=== PATIENT | male | born 1950 | race Caucasian/White ===

== ENCOUNTER → 2016-05-18 | Outpatient (CLI) | payer MEDICARE, OTHER | END | disposition home or self-care (01) | LOC: Rad HDHVI 09:40 | PROVIDERS: ATTEND Internal Medicine Cardiovascular Disease | DX: R91.8 Other nonspecific abnormal finding of lung field (principal); I70.0 Atherosclerosis of aorta | CPT/HCPCS: 71020 ==

== ENCOUNTER → 2016-06-13 | Outpatient (CLI) | payer MEDICARE, OTHER ==
[~2016-06-13] VITALS: Ht 180.3 cm; Wt 76.2 kg
[~2016-06-13] MED LIST: ALBUTEROL SULF 2.5 MG/0.5ML(0.5%) NEB SOLN NEB ONE; ALBUTEROL SULF 2.5 MG/0.5ML(0.5%) NEB SOLN ONE; CYANOCOBALAMIN (B-12) 1000 MCG/1 ML VIAL IM ONE; CYANOCOBALAMIN (B-12) 1000 MCG/1 ML VIAL ONE; methylPREDNISolone SOD SUCC 125 MG/2 ML VL IV ONE; methylPREDNISolone SOD SUCC 125 MG/2 ML VL ONE
[2016-06-13 10:30] VITALS: BP 137/97
[2016-06-13 14:10] VITALS: BP 149/97
[2016-06-13 17:19] LABS: BUN/Creatinine Ratio 13.3; Calcium 9.5 mg/dL (8.5-10.1); Potassium 4.5 mmol/L (3.5-5.1); Uric Acid 5.5 mg/dL (3.5-7.2)
== END | disposition home or self-care (01) ==
LOC: CHF HDHVI 10:15
PROVIDERS: ATTEND Internal Medicine Cardiovascular Disease
DX: I10 Essential (primary) hypertension (principal); M10.9 Gout, unspecified; E55.9 Vitamin D deficiency, unspecified; E11.9 Type 2 diabetes mellitus without complications
CPT/HCPCS: 36415; 80048; 82306; 83036; 84550; 94640; 96372; 96374; G0463

== ENCOUNTER → 2016-06-20 | Outpatient (CLI) | payer MEDICARE, OTHER ==
[~2016-06-20] MED LIST changes: -ALBUTEROL SULF 2.5 MG/0.5ML(0.5%) NEB SOLN NEB ONE; -ALBUTEROL SULF 2.5 MG/0.5ML(0.5%) NEB SOLN ONE; -methylPREDNISolone SOD SUCC 125 MG/2 ML VL IV ONE; -methylPREDNISolone SOD SUCC 125 MG/2 ML VL ONE
[2016-06-20 09:45] VITALS: BP 156/104
[2016-06-20 10:20] VITALS: BP 154/100
== END | disposition home or self-care (01) ==
LOC: CHF HDHVI 09:56
PROVIDERS: ATTEND Internal Medicine Cardiovascular Disease
DX: I50.9 Heart failure, unspecified (principal); J44.9 Chronic obstructive pulmonary disease, unspecified; D64.9 Anemia, unspecified
CPT/HCPCS: 96372; G0463; J3420

== ENCOUNTER → 2016-10-14 | Outpatient (CLI) | payer MEDICARE, OTHER ==
[2016-10-14 08:50] VITALS: BP 117/79
[2016-10-14 09:45] VITALS: BP 116/82
[2016-10-14 12:55] LABS: BUN/Creatinine Ratio 16.5; Calcium 9.3 mg/dL (8.5-10.1); Potassium 4.5 mmol/L (3.5-5.1)
== END | disposition home or self-care (01) ==
LOC: CHF HDHVI 08:57
PROVIDERS: ATTEND Internal Medicine Cardiovascular Disease
DX: I25.10 Atherosclerotic heart disease of native coronary artery without angina pectoris (principal); I10 Essential (primary) hypertension; E11.9 Type 2 diabetes mellitus without complications; E83.42 Hypomagnesemia
CPT/HCPCS: 36415; 80048; 83036; 83735; G0463

== ENCOUNTER → 2016-11-08 | Outpatient (CLI) | payer MEDICARE | END | disposition home or self-care (01) | LOC: Rad HDHVI 09:51 | PROVIDERS: ATTEND Internal Medicine Cardiovascular Disease | DX: I10 Essential (primary) hypertension (principal); J44.9 Chronic obstructive pulmonary disease, unspecified | CPT/HCPCS: 93306 ==

== ENCOUNTER → 2016-11-14 | Outpatient (CLI) | payer MEDICARE ==
[~2016-11-14] VITALS: Ht 180.3 cm; Wt 76.7 kg
[~2016-11-14] MED LIST changes: -CYANOCOBALAMIN (B-12) 1000 MCG/1 ML VIAL IM ONE; -CYANOCOBALAMIN (B-12) 1000 MCG/1 ML VIAL ONE; +D5W 5% IV SCH; +DIPYRIDAMOLE (5MG/ML) 10 ML VIAL IV ONE; +DIPYRIDAMOLE IV SCH
== END | disposition home or self-care (01) ==
LOC: Rad HDHVI 09:14
PROVIDERS: ATTEND Internal Medicine Cardiovascular Disease
DX: I10 Essential (primary) hypertension (principal); I25.10 Atherosclerotic heart disease of native coronary artery without angina pectoris; J44.9 Chronic obstructive pulmonary disease, unspecified
CPT/HCPCS: 78452; 93005; 96374; 96375; A9500; J1245

== ENCOUNTER → 2017-07-21 | Outpatient (CLI) | payer MEDICARE ==
[~2017-07-21] MED LIST changes: +ALPR0.254 PO; +ASPI81CH49 PO; -D5W 5% IV SCH; -DIPYRIDAMOLE (5MG/ML) 10 ML VIAL IV ONE; -DIPYRIDAMOLE IV SCH; +FURO20TA PO; +LISI30TA36 PO; +POTA10TA34 PO
[2017-07-21 12:00] LABS: BUN/Creatinine Ratio 15.3; Calcium 8.8 mg/dL (8.5-10.1); Potassium 3.9 mmol/L (3.5-5.1)
== END | disposition home or self-care (01) ==
LOC: LAB 09:11
PROVIDERS: ATTEND Internal Medicine
DX: I11.0 Hypertensive heart disease with heart failure (principal); I50.32 Chronic diastolic (congestive) heart failure; E78.5 Hyperlipidemia, unspecified; E11.9 Type 2 diabetes mellitus without complications; Z79.899 Other long term (current) drug therapy
CPT/HCPCS: 36415; 80048

== ENCOUNTER → 2017-08-16 | Outpatient (CLI) | payer MEDICARE | END | disposition home or self-care (01) | LOC: Rad HDHVI 15:14 | PROVIDERS: ATTEND Internal Medicine Cardiovascular Disease | DX: I25.10 Atherosclerotic heart disease of native coronary artery without angina pectoris (principal); I11.0 Hypertensive heart disease with heart failure; I50.23 Acute on chronic systolic (congestive) heart failure; E78.5 Hyperlipidemia, unspecified; F41.9 Anxiety disorder, unspecified; J44.9 Chronic obstructive pulmonary disease, unspecified; K21.9 Gastro-esophageal reflux disease without esophagitis; Z79.899 Other long term (current) drug therapy | CPT/HCPCS: 71046 ==

== ENCOUNTER → 2017-08-18 | Outpatient (CLI) | payer MEDICARE | END | disposition home or self-care (01) | LOC: Rad HDHVI 13:38 | PROVIDERS: ATTEND Internal Medicine Cardiovascular Disease | DX: J44.9 Chronic obstructive pulmonary disease, unspecified (principal); F41.9 Anxiety disorder, unspecified; I11.0 Hypertensive heart disease with heart failure; I50.9 Heart failure, unspecified; E11.9 Type 2 diabetes mellitus without complications; E78.5 Hyperlipidemia, unspecified | CPT/HCPCS: 93306 ==

== ENCOUNTER 2018-04-30 15:25 | Inpatient (IN) | payer MEDICARE | END 2018-05-18 13:30 | disposition home or self-care (01) | LOC: TELE-WESTW 05-07 11:46 → ER 15:25 → TELE 17:12 → ICU WEST 22:22 | PROC: 5A1955Z Respiratory Ventilation, Greater than 96 Consecutive Hours (ICD-10-PCS; principal; ~2018-04-30) | PROC: 0BH17EZ Insertion of Endotracheal Airway into Trachea, Via Natural or Artificial Opening (ICD-10-PCS; ~2018-04-30) | PROC: B2111ZZ Fluoroscopy of Multiple Coronary Arteries using Low Osmolar Contrast (ICD-10-PCS; ~2018-04-30) | PROC: B2151ZZ Fluoroscopy of Left Heart using Low Osmolar Contrast (ICD-10-PCS; ~2018-04-30) | DX: J96.21 Acute and chronic respiratory failure with hypoxia (principal); J18.9 Pneumonia, unspecified organism; G93.41 Metabolic encephalopathy; J44.1 Chronic obstructive pulmonary disease with (acute) exacerbation; I47.1 Supraventricular tachycardia; F41.9 Anxiety disorder, unspecified; E78.5 Hyperlipidemia, unspecified; I25.10 Atherosclerotic heart disease of native coronary artery without angina pectoris; Z99.81 Dependence on supplemental oxygen; I11.0 Hypertensive heart disease with heart failure; I50.9 Heart failure, unspecified ==

== ENCOUNTER → 2018-05-28 | Outpatient (CLI) | payer MEDICARE ==
[~2018-05-28] MED LIST changes: +ALBU1AER4 IN; -ALPR0.254 PO; +BUSP15TA60 PO; +LISI10TA6 PO; -LISI30TA36 PO; +MELO1TAB56 PO; +MONT10TA34 OR; -POTA10TA34 PO; +POTA10TA48 PO; +PRE5T GT
== END | disposition home or self-care (01) ==
LOC: Rad HDHVI 11:27
PROVIDERS: ATTEND Internal Medicine Cardiovascular Disease
DX: I70.0 Atherosclerosis of aorta (principal); M47.894 Other spondylosis, thoracic region; J98.11 Atelectasis; I10 Essential (primary) hypertension; J44.9 Chronic obstructive pulmonary disease, unspecified
CPT/HCPCS: 71046

== ENCOUNTER → 2018-07-18 | Outpatient (CLI) | payer MEDICARE ==
[~2018-07-18] VITALS: Ht 182.9 cm; Wt 81.6 kg
[~2018-07-18] MED LIST changes: +ADENOSINE 69 MG in GIVE UN-DILUTED 0 ML IV ONE; +ADENOSINE 90 MG/30 ML INJ IV ONE
== END | disposition home or self-care (01) ==
LOC: Rad HDHVI 10:00
PROVIDERS: ATTEND Internal Medicine Cardiovascular Disease
DX: I25.10 Atherosclerotic heart disease of native coronary artery without angina pectoris (principal); Z13.89 Encounter for screening for other disorder; I10 Essential (primary) hypertension; G62.9 Polyneuropathy, unspecified; J44.9 Chronic obstructive pulmonary disease, unspecified; J18.9 Pneumonia, unspecified organism; J96.90 Respiratory failure, unspecified, unspecified whether with hypoxia or hypercapnia
CPT/HCPCS: 78452; 93005; 96374; 96375; A9500; J0153

== ENCOUNTER → 2018-07-25 | Outpatient (CLI) | payer MEDICARE ==
[~2018-07-25] MED LIST changes: -ADENOSINE 69 MG in GIVE UN-DILUTED 0 ML IV ONE; -ADENOSINE 90 MG/30 ML INJ IV ONE
== END | disposition home or self-care (01) ==
LOC: Rad HDHVI 11:24
PROVIDERS: ATTEND Internal Medicine Cardiovascular Disease
DX: J43.9 Emphysema, unspecified (principal)
CPT/HCPCS: 71250

== ENCOUNTER 2018-08-28 21:20 | Inpatient (IN) | payer MEDICARE ==
[~2018-08-28] VITALS: Ht 180.3 cm; Wt 85.5 kg
[~2018-08-28 21:20] MED LIST changes: -ASPI81CH49 PO; +FLUC100T34 PO; -FURO20TA PO; +LEVO-28 PO; -LISI10TA6 PO; -MONT10TA34 OR; +MONT10TA34 PO; +MULTTAB61 PO; -POTA10TA48 PO; -PRE5T GT; +PRE5T PO
[2018-08-28] MEDS ORDERED: IPRATROPIUM BROM 0.5 MG/2.5ML INH SOL ONE (21:22)
[2018-08-28] MEDS ORDERED: ALBUTEROL SULF 2.5 MG/0.5ML(0.5%) NEB SOLN ONE (21:22)
[2018-08-28] MEDS ORDERED: methylPREDNISolone SOD SUCC 125 MG/2 ML VL ONE (21:34)
[2018-08-28] MEDS ORDERED: SODIUM CHLORIDE 0.9% 500 ML IV ONE (21:35)
[2018-08-28] MEDS ORDERED: IPRATROPIUM BROM 0.5 MG/2.5ML INH SOL HHN ONE (21:45)
[2018-08-28] MEDS ORDERED: methylPREDNISolone SOD SUCC 125 MG/2 ML VL IV ONE (21:45)
[2018-08-28] MEDS ORDERED: AZITHROMYCIN 500MG/ 250ML 250 ML IV ONE (21:45)
[2018-08-28] MEDS ORDERED: cefTRIAXone 1GM/50ML D5W 50 ML IV ONE (21:45)
[2018-08-28] MEDS ORDERED: ADENOSINE 6 MG/2 ML INJ IV ONE (21:45)
[2018-08-28 22:11] LABS: Basophils # (auto) 0.1 uL; Basophils % (auto) 1.1 % (0.0-2.0); Eosinophils # (auto) 0.2 uL; Eosinophils % (auto) 1.7 % (0.0-7.0); Hematocrit 41.5 % (41.0-53.0); Hemoglobin 13.6 g/dL (13.5-17.5); Lymphocytes # (auto) 3.4 uL; Lymphocytes % (auto) 27.4 % (10.0-50.0); Mean Corpuscular Hemoglobin 32.2 pg (28.0-32.0); Mean Corpuscular Hgb Conc. 32.7 g/dL (32.0-36.0); Mean Corpuscular Volume 98.6 fL (80.0-100.0); Monocytes # (auto) 1.2 uL; Monocytes % (auto) 9.7 % (0.0-12.0); Neutrophils # (auto) 7.5 uL; Neutrophils % (auto) 60.1 % (37.0-80.0); Platelet Count (auto) 146 10^3/uL (140-450); Red Blood Cells 4.21 10^6/uL (4.5-5.90); White Blood Cell 12.4 10^3/uL (4.4-10.8)
[2018-08-28 22:25] LABS: INR < 0.93 (0.9-1.15); Partial Thromboplastin Time 22.8 sec (23.64-32.05)
[2018-08-28 22:27] LABS: Albumin 3.4 g/dL (3.4-5.0); Calcium 8.9 mg/dL (8.5-10.1); Magnesium 2.6 mg/dL (1.6-2.6); Potassium 4.3 mmol/L (3.5-5.1)
[2018-08-28 22:33] LABS: BUN/Creatinine Ratio 12.6; Bilirubin, Total 0.3 mg/dL (0.2-1.0); Total Protein 6.8 g/dL (6.4-8.2)
[2018-08-28] MEDS ORDERED: busPIRone HCL 10 MG TAB PO ONE (23:00)
[2018-08-29] MEDS ORDERED: IOHEXOL 350 MG/ML 100ML IJ ONE (00:53)
[2018-08-29] MEDS ORDERED: LEVALBUTEROL HCL 1.25 MG/3 ML NEB NEB ONE (04:30)
[2018-08-29] MEDS ORDERED: MORPHINE SULF INJ 2 MG/ML SYRINGE 1ML IV PRN (10:45)
[2018-08-29] MEDS ORDERED: NITROGLYCERIN 0.4 MG SL TAB SL PRN (10:45)
[2018-08-29] MEDS ORDERED: MONTELUKAST SODIUM 10 MG TAB PO ONE (11:00)
[2018-08-29] MEDS ORDERED: THEOPHYLLINE 80 MG/15ml ORAL Elixir PO ONE (11:00)
[2018-08-29] MEDS ORDERED: ASPirin 81 mg TAB PO ONE (11:00)
[2018-08-29] MEDS ORDERED: FLUCONAZOLE 100 MG TAB PO ONE (11:00)
[2018-08-29] MEDS ORDERED: AZITHROMYCIN 500MG/ 250ML 250 ML IV ONE (11:00)
[2018-08-29] MEDS ORDERED: methylPREDNISolone SOD SUCC 40 MG/ML VL IV ONE (11:00)
[2018-08-29 11:15] VITALS: BP 142/103
[2018-08-29] MEDS: IPRATROPIUM BROM 0.5 MG/2.5ML INH SOL NEB SCH ×4 (11:15→22:18)
--- NOTE | 2018-08-29 13:50 | NUR ---
MS admit from ER KASSIDY BLANKENSHIP admitted to tele/MS after SBAR received. Patient oriented to JING NARVAEZ, RN primary RN, unit, room, bed, and unit policies regarding patient care and visiting hours. Patient weighed by bedscale and encouraged to call if they need something. All questions and concerns addressed, patient verbalized understanding. Note:
[2018-08-29 13:54] VITALS: BP 146/90
[2018-08-29 14:15] VITALS: BP 146/90
[2018-08-29] MEDS: FEXOFENADINE HCL 60 MG TAB PO SCH ×2 (14:40→21:30)
[2018-08-29] MEDS: busPIRone HCL 10 MG TAB PO SCH ×2 (14:40→21:30)
[2018-08-29] MEDS: methylPREDNISolone SOD SUCC 40 MG/ML VL IV SCH ×2 (14:40→21:29)
[2018-08-29 17:43] VITALS: BP 139/70
--- NOTE | 2018-08-29 18:58 | NUR ---
REPORT GIVEN TO SHAJI PRETTY
--- NOTE | 2018-08-29 19:30 | NUR ---
OPENING NOTE ASSUMED PT CARE FROM DAY SHIFT NURSE JING. PT IS A/OX4 LAYING QUIETLY IN BED WITH NO S/S OF SOB OR DISTRESS. PT STATES THAT HE IS FEELING BETTER REGARDING HIS BREATHING AND SOB. DISCUSSED POC WITH PT. SAFETY MEASURES MAINTAINED WITH SIDE RAILS UP, BED IN LOWEST POSITION AND CALL LIGHT WITHIN REACH. WILL CONTINUE TO MONITOR FOR CHANGES Q1HR AND PRN.
[2018-08-29 22:00] VITALS: BP 143/85
[2018-08-29] MEDS ORDERED: IPRATROPIUM BROM 0.5 MG/2.5ML INH SOL ONE (22:03)
[2018-08-30] MEDS: IPRATROPIUM BROM 0.5 MG/2.5ML INH SOL NEB SCH ×6 (02:16→22:00)
[2018-08-30 04:30] VITALS: BP 120/69
--- NOTE | 2018-08-30 04:53 | NUR ---
IV INSERTION 20 G IN RIGHT HAND PLACED. PT REQUESTED THE CHANGE OF IV DUE TO IRRITATION AND HIM BEING LEFT HANDED. PT TOLERATED WELL AND STERILE TECHNIQUE WAS MAINTAINED.
--- NOTE | 2018-08-30 04:55 | NUR ---
IV REMOVAL IV REMOVAL OF L 20G AC. PT TOLERATED WELL, CATHETER WAS REMOVED FULLY INTACT AND PRESSURE WAS APPLIED TO SIDE FOR 3 MINUTES AND WRAPPED WITH COBAN.
[2018-08-30] MEDS: methylPREDNISolone SOD SUCC 40 MG/ML VL IV SCH ×3 (05:24→22:08)
[2018-08-30] MEDS: busPIRone HCL 10 MG TAB PO SCH ×3 (05:24→22:08)
[2018-08-30] MEDS: FEXOFENADINE HCL 60 MG TAB PO SCH ×3 (05:24→22:08)
--- NOTE | 2018-08-30 07:30 | NUR ---
Opening Shift Note Assumed care of patient, awake and alert. No S/S of distress/SOB or pain. Instructed on POC and to call for assist PRN, will continue to monitor for changes Q1hr and PRN.
[2018-08-30 08:00] VITALS: BP 124/83
[2018-08-30] MEDS: AZITHROMYCIN 500MG/ 250ML 250 ML IV SCH (10:06)
[2018-08-30] MEDS: ASPirin 81 mg TAB PO SCH (10:07)
[2018-08-30] MEDS: THEOPHYLLINE 80 MG/15ml ORAL Elixir PO SCH (10:07)
[2018-08-30] MEDS: FLUCONAZOLE 100 MG TAB PO SCH (10:07)
[2018-08-30] MEDS: MONTELUKAST SODIUM 10 MG TAB PO SCH (10:07)
[2018-08-30 12:00] VITALS: BP 123/86
[2018-08-30 17:00] VITALS: BP 119/77
--- NOTE | 2018-08-30 19:20 | NUR ---
Opening Shift Note Assumed care of patient, awake and alert. No S/S of distress/SOB or pain. Instructed on POC and to call for assist PRN. Bed in lowest locked position, call light within reach, side rails up x2, fall precautions in place. Will continue to monitor for changes Q1hr and PRN.
[2018-08-30 21:30] VITALS: BP 117/80
[2018-08-31] MEDS: IPRATROPIUM BROM 0.5 MG/2.5ML INH SOL NEB SCH ×6 (02:14→22:43)
[2018-08-31 04:30] VITALS: BP 115/55
[2018-08-31] MEDS: FEXOFENADINE HCL 60 MG TAB PO SCH ×3 (06:10→21:37)
[2018-08-31] MEDS: busPIRone HCL 10 MG TAB PO SCH ×3 (06:10→21:37)
[2018-08-31] MEDS: methylPREDNISolone SOD SUCC 40 MG/ML VL IV SCH ×3 (06:11→21:36)
--- NOTE | 2018-08-31 07:20 | NUR ---
Open Shift Note Received report on patient, awake and sitting up in bed. Patient shows no signs of distress at this time. Patient states their breathing is "a little bit better today" but that he is still unable to cough anything up. Discussed POC with patient. Bed in lowest locked position, side rails up x2 and call light within reach. Will continue to monitor.
[2018-08-31 09:00] VITALS: BP 139/95
[2018-08-31] MEDS: AZITHROMYCIN 500MG/ 250ML 250 ML IV SCH (09:52)
[2018-08-31] MEDS: FLUCONAZOLE 100 MG TAB PO SCH (09:53)
[2018-08-31] MEDS: ASPirin 81 mg TAB PO SCH (09:53)
[2018-08-31] MEDS: THEOPHYLLINE 80 MG/15ml ORAL Elixir PO SCH (09:53)
[2018-08-31] MEDS: MONTELUKAST SODIUM 10 MG TAB PO SCH (09:53)
--- NOTE | 2018-08-31 11:11 | NUR ---
IV insertion IV access obtained, via clean sterile technique by inserting 20 gauge catheter in the left forearm. IV secured properly. No trauma to site. Patient tolerated well. IV removed from left hand using clean sterile technique, catheter intact and dressing applied.
[2018-08-31 13:00] VITALS: BP 112/80
--- NOTE | 2018-08-31 14:35 | NUR ---
IV insertion IV access obtained, via clean sterile technique by inserting 22 gauge catheter in the right forearm. IV secured properly. No trauma to site. Patient tolerated well. IV removed from left forearm using clean sterile technique, catheter intact and dressing applied.
[2018-08-31 17:00] VITALS: BP 119/88
--- NOTE | 2018-08-31 19:00 | NUR ---
End of Shift Patient sitting up in bed, showing no signs of distress at this time. Bed in lowest locked position, side rails up x2 and call light within reach. Endorsed care to [facility] nurse Medina.
--- NOTE | 2018-08-31 19:10 | NUR ---
Opening Shift Note Assumed care of patient, awake and alert. No S/S of distress/SOB or pain. Instructed on POC and to call for assist PRN. Bed in lowest locked position, call light within reach, side rails up x2. Will continue to monitor for changes Q1hr and PRN.
[2018-08-31 22:00] VITALS: BP 126/81
[2018-09-01] MEDS: IPRATROPIUM BROM 0.5 MG/2.5ML INH SOL NEB SCH ×6 (04:14→22:02)
[2018-09-01 04:30] VITALS: BP 108/73
[2018-09-01] MEDS: methylPREDNISolone SOD SUCC 40 MG/ML VL IV SCH ×3 (05:36→21:23)
[2018-09-01] MEDS: FEXOFENADINE HCL 60 MG TAB PO SCH ×3 (05:37→21:23)
[2018-09-01] MEDS: busPIRone HCL 10 MG TAB PO SCH ×3 (05:37→21:23)
--- NOTE | 2018-09-01 07:20 | NUR ---
Open Shift Note Patient asleep in bed, shows no signs of distress at this time. Bed in lowest locked position, side rails up x2 and call light within reach. Will continue to monitor.
--- NOTE | 2018-09-01 07:54 | NUR ---
Anxiety Attack Patient had anxiety attack. Patient stated it started after ambulating to restroom. Ensured patient's oxygen was on and flowing. Patient's O2 saturation 96% on 4L NC. Talked patient through breathing exercises. When first entered room patient was sitting on side of bed breathing heavily through mouth. Educated patient importance of breathing through nose to receive O2 from nasal cannula. Patient had received scheduled anxiety medication at 0537 from [facility] nurse. Patient used breathing exercises and calmed down. Discussed POC with patient to ease anxiety about his status. Patient verbalized understanding. Discussed using bedside commode instead of walking to restroom, patient verbalized being ok with use of one. Patient sat back in bed and no longer has labored breathing. Will continue to monitor. Truck Guard to bring bedside commode.
[2018-09-01 08:20] VITALS: BP 126/95
[2018-09-01] MEDS: ALPRAZolam 0.5 MG TAB PO PRN ×2 (08:25→18:49)
--- NOTE | 2018-09-01 08:43 | NUR ---
Paged Dario For PRN Breathing Treatment Paged Dr Bishop to inform him of patient's anxiety attack and to ask for orders for PRN breathing treatments. Awaiting callback.
[2018-09-01] MEDS ORDERED: ALBUTEROL SULF 2.5 MG/0.5ML(0.5%) NEB SOLN ONE (09:53)
[2018-09-01] MEDS: AZITHROMYCIN 500MG/ 250ML 250 ML IV SCH (11:02)
[2018-09-01] MEDS: MONTELUKAST SODIUM 10 MG TAB PO SCH (11:03)
[2018-09-01] MEDS: ASPirin 81 mg TAB PO SCH (11:03)
[2018-09-01] MEDS: THEOPHYLLINE 80 MG/15ml ORAL Elixir PO SCH (11:03)
[2018-09-01] MEDS: FLUCONAZOLE 100 MG TAB PO SCH (11:03)
[2018-09-01] MEDS ORDERED: POTASSIUM CHL 20 Meq TABLET PO ONE (12:30)
[2018-09-01] MEDS ORDERED: FUROSEMIDE 40 MG/4 ML VIAL IV ONE (12:30)
[2018-09-01 13:41] VITALS: BP 126/95
--- NOTE | 2018-09-01 14:02 | NUR ---
NUTRITION ASSESSMENT NOTES Please refer to link notes of nutrition screen form filed under the intervention section of the plan of care for further details. Est. Needs: 1750 kcal to 2150 kcal (20-25 kcal/kgBW), 69 gms to 87 gms pro (0.8-1.0 gms/kgBW). Will continue to monitor pertinent labs and reassess nutrient need prn Thank you. Addendum: 09/01/18 at [address] Amended: Links added.
[2018-09-01 15:12] VITALS: BP 126/95
[2018-09-01] MEDS: ALBUTEROL SULF 2.5 MG/0.5ML(0.5%) NEB SOLN NEB SCH ×3 (15:30→22:02)
[2018-09-01 17:13] VITALS: BP 120/86
--- NOTE | 2018-09-01 19:04 | NUR ---
End of Shift Patient sitting up in bed, states he is worried about his who just got admitted to [facility] for a TIA. Patient's daughter at bedside helping to reassure patient. PRN anxiety medication given. Bed in lowest locked position, side rails up x2 and call light within reach.
[2018-09-01 22:00] VITALS: BP 111/82
--- NOTE | 2018-09-01 22:38 | NUR ---
Opening Shift Note Assumed care of patient, awake and alert. No S/S of distress/SOB or pain. Instructed on POC and to call for assist PRN, will continue to monitor for changes Q1hr and PRN. Side rails up x2. Bed locked in lowest position. Call light within reach. Addendum: 09/01/18 at 8943 by CLARKE RAYMUNDO RN RN done at 0
[2018-09-02] MEDS: ALBUTEROL SULF 2.5 MG/0.5ML(0.5%) NEB SOLN NEB SCH ×6 (02:04→22:56)
[2018-09-02] MEDS: IPRATROPIUM BROM 0.5 MG/2.5ML INH SOL NEB SCH ×6 (02:04→22:56)
[2018-09-02 05:00] VITALS: BP 121/78
[2018-09-02] MEDS: busPIRone HCL 10 MG TAB PO SCH ×3 (05:51→21:19)
[2018-09-02] MEDS: methylPREDNISolone SOD SUCC 40 MG/ML VL IV SCH ×3 (05:51→21:18)
[2018-09-02] MEDS: FEXOFENADINE HCL 60 MG TAB PO SCH ×3 (05:52→21:19)
[2018-09-02 06:32] LABS: Basophils # (auto) 0.1 uL; Basophils % (auto) 0.4 % (0.0-2.0); Eosinophils # (auto) 0 uL; Eosinophils % (auto) 0.1 % (0.0-7.0); Hematocrit 41.1 % (41.0-53.0); Hemoglobin 13.5 g/dL (13.5-17.5); Lymphocytes # (auto) 0.3 uL; Lymphocytes % (auto) 2.1 % (10.0-50.0); Mean Corpuscular Hgb Conc. 32.8 g/dL (32.0-36.0); Mean Corpuscular Volume 97.8 fL (80.0-100.0); Monocytes # (auto) 0.5 uL; Monocytes % (auto) 3.2 % (0.0-12.0); Neutrophils # (auto) 13.7 uL; Neutrophils % (auto) 94.2 % (37.0-80.0); Nucleated Red Blood Cells % 0.1 %; Platelet Count (auto) 129 10^3/uL (140-450); Red Cell Distribution Width 15.3 % (11.8-14.3); White Blood Cell 14.5 10^3/uL (4.4-10.8)
[2018-09-02 06:45] LABS: Potassium 4.6 mmol/L (3.5-5.1)
[2018-09-02 06:50] LABS: Albumin 2.8 g/dL (3.4-5.0); BUN/Creatinine Ratio 32.7; Bilirubin, Total 0.3 mg/dL (0.2-1.0); Calcium 8.4 mg/dL (8.5-10.1); Total Protein 5.8 g/dL (6.4-8.2)
--- NOTE | 2018-09-02 07:30 | NUR ---
Opening Shift Note Assumed care of patient, awake and alert. No S/S of distress or pain. Patient gets SOB on exertion and sometimes even at rest. Instructed on POC-continue IV antibiotic, continue breathing treatment. Patient informed to call for assist PRN, will continue to monitor for changes Q1hr and PRN. Call light within reach and bed in lowest position.
[2018-09-02 08:27] VITALS: BP 100/59
[2018-09-02] MEDS: THEOPHYLLINE 80 MG/15ml ORAL Elixir PO SCH (09:08)
[2018-09-02] MEDS: ASPirin 81 mg TAB PO SCH (09:10)
[2018-09-02] MEDS: MONTELUKAST SODIUM 10 MG TAB PO SCH (09:11)
[2018-09-02] MEDS: FLUCONAZOLE 100 MG TAB PO SCH (09:11)
[2018-09-02] MEDS: AZITHROMYCIN 500MG/ 250ML 250 ML IV SCH (09:18)
[2018-09-02 12:48] VITALS: BP 126/80
--- NOTE | 2018-09-02 13:30 | NUR ---
Low HR Dr. Bishop informed on rounds that patient's HR goes down to 48. stated to continue to monitor.
[2018-09-02 16:33] VITALS: BP 113/86
--- NOTE | 2018-09-02 18:56 | NUR ---
Closing Note Patient is resting in bed, still having his dinner, no complaints of pain/SOB or distress. Care endorsed to night RN.
--- NOTE | 2018-09-02 19:15 | NUR ---
Opening Shift Note Assumed care of patient, awake and alert. No S/S of distress/SOB or pain. Instructed on POC and to call for assist PRN, will continue to monitor for changes Q1hr and PRN. Side rails up x2. Bed locked in lowest position. Call light within reach.
[2018-09-02 22:00] VITALS: BP 124/87
[2018-09-03] MEDS: IPRATROPIUM BROM 0.5 MG/2.5ML INH SOL NEB SCH ×6 (02:38→22:05)
[2018-09-03] MEDS: ALBUTEROL SULF 2.5 MG/0.5ML(0.5%) NEB SOLN NEB SCH ×6 (02:38→22:04)
[2018-09-03 05:00] VITALS: BP 132/79
[2018-09-03] MEDS: methylPREDNISolone SOD SUCC 40 MG/ML VL IV SCH ×3 (05:40→23:04)
[2018-09-03] MEDS: FEXOFENADINE HCL 60 MG TAB PO SCH ×3 (05:41→23:03)
[2018-09-03] MEDS: busPIRone HCL 10 MG TAB PO SCH ×3 (05:42→23:03)
--- NOTE | 2018-09-03 07:37 | NUR ---
Endorsed care to day shift RN.
[2018-09-03 08:00] VITALS: BP 129/79
[2018-09-03 09:00] VITALS: BP 129/79
--- NOTE | 2018-09-03 10:05 | NUR ---
IV removal IV to left wrist 20g infiltrated. DC'd with sterile technique, catheter fully intact. Pressure dressing applied to site. Patient tolerated procedure well.
[2018-09-03] MEDS: AZITHROMYCIN 500MG/ 250ML 250 ML IV SCH (10:09)
[2018-09-03] MEDS: ASPirin 81 mg TAB PO SCH (10:10)
[2018-09-03] MEDS: FLUCONAZOLE 100 MG TAB PO SCH (10:10)
[2018-09-03] MEDS: MONTELUKAST SODIUM 10 MG TAB PO SCH (10:10)
[2018-09-03] MEDS: THEOPHYLLINE 80 MG/15ml ORAL Elixir PO SCH (10:11)
--- NOTE | 2018-09-03 10:30 | NUR ---
IV insertion IV access obtained, via clean sterile technique by inserting 22 gauge catheter at left upper arm after 1 attempt. IV secured properly. No trauma to site. Patient tolerated procedure well.
[2018-09-03 13:00] VITALS: BP 142/91
[2018-09-03] MEDS: ALPRAZolam 0.5 MG TAB PO PRN (14:14)
--- NOTE | 2018-09-03 16:22 | NUR ---
Received social service consult. Pt requested an advance directive and power of traffic law attorney form. diversified crops farmworker provided advance directive for pt.
[2018-09-03 16:58] VITALS: BP 134/76
--- NOTE | 2018-09-03 19:25 | NUR ---
CARE ENDORSED TO EVETTE PRETTY.
[2018-09-03 22:00] VITALS: BP 125/68
[2018-09-04] MEDS: IPRATROPIUM BROM 0.5 MG/2.5ML INH SOL NEB SCH ×4 (02:14→14:09)
[2018-09-04] MEDS: ALBUTEROL SULF 2.5 MG/0.5ML(0.5%) NEB SOLN NEB SCH ×4 (02:15→14:09)
[2018-09-04 05:00] VITALS: BP 100/68
[2018-09-04] MEDS: methylPREDNISolone SOD SUCC 40 MG/ML VL IV SCH ×2 (06:18→14:38)
[2018-09-04] MEDS: busPIRone HCL 10 MG TAB PO SCH ×2 (06:18→14:39)
[2018-09-04] MEDS: FEXOFENADINE HCL 60 MG TAB PO SCH ×2 (06:18→14:39)
--- NOTE | 2018-09-04 07:25 | NUR ---
Opening Shift Note Assumed care of patient, awake and alert. No S/S of distress or pain. Patient reported he has SOB on exertion and sometimes even at rest. Instructed on POC-continue IV antibiotic, IV steroid and continue breathing treatment as ordered. Patient informed to call for assist PRN, will continue to monitor for changes Q1hr and PRN. Call light within reach and bed in lowest position.
[2018-09-04 09:00] VITALS: BP 100/49
[2018-09-04] MEDS: AZITHROMYCIN 500MG/ 250ML 250 ML IV SCH (09:09)
[2018-09-04] MEDS: THEOPHYLLINE 80 MG/15ml ORAL Elixir PO SCH (10:12)
[2018-09-04] MEDS: MONTELUKAST SODIUM 10 MG TAB PO SCH (10:13)
[2018-09-04] MEDS: ASPirin 81 mg TAB PO SCH (10:13)
[2018-09-04] MEDS: FLUCONAZOLE 100 MG TAB PO SCH (10:13)
[2018-09-04 14:32] VITALS: BP 132/90
[2018-09-04 15:15] VITALS: BP 136/89
--- NOTE | 2018-09-04 16:56 | NUR ---
Called [employer] and [employer] Manager [employer] and left message on both of them to follow up regarding Home Health order. Awaiting call back from Attendant Sales/Manager Specialty.
--- NOTE | 2018-09-04 17:15 | NUR ---
Went to Nuclear Plant Operator's office, spoke to Elena. She said Floridalma is handling the patient's case. She stated [facility] has accepted the patient: ph [phone].
[2018-09-04 17:20] VITALS: BP 132/90
--- NOTE | 2018-09-04 18:10 | NUR ---
Discharge Discharge instructions given as ordered. Encourage to follow up with Primary MD as instructed. All questions and concerns addressed. Patient verbalized understanding. Patient refused the pnuemonia vaccine. IV removed with catheter intact, pressure dressing applied. Patient taken to vehicle via wheelchair with all personal belongings, accompanied by staff and family member. No distress noted at time of departure. Patient has portable home oxygen with him.
== END 2018-09-04 18:19 | disposition home health service (06) | DRG 189 ==
LOC: EDBD 21:20 → ER 21:27 → OVERFLOW 21:28 → EAST 08-29 13:38
PROVIDERS: ADMIT Internal Medicine Cardiovascular Disease; ATTEND Internal Medicine Cardiovascular Disease
PROC: 5A09357 Assistance with Respiratory Ventilation, Less than 24 Consecutive Hours, Continuous Positive Airway Pressure (ICD-10-PCS; principal; 2018-08-28)
DX: J96.01 Acute respiratory failure with hypoxia (principal); J90 Pleural effusion, not elsewhere classified; J44.1 Chronic obstructive pulmonary disease with (acute) exacerbation; I47.1 Supraventricular tachycardia; I50.30 Unspecified diastolic (congestive) heart failure; F41.9 Anxiety disorder, unspecified; Z99.81 Dependence on supplemental oxygen; I11.0 Hypertensive heart disease with heart failure
CPT/HCPCS: 36415; 36600; 71045; 71275; 80053; 82805; 83735; 83880; 84484; 85025; 85379; 85610; 85730; 87040; 93005; 94640; 94644; 94761; 96361; 96365; 96367; 96368; G0378; J0696

== ENCOUNTER → 2018-09-11 | Outpatient (CLI) | payer MEDICARE ==
[~2018-09-11] MED LIST changes: +FUROSEMIDE 40 MG/4 ML VIAL IV ONE; +FUROSEMIDE 40 MG/4 ML VIAL ONE; +methylPREDNISolone SOD SUCC 125 MG/2 ML VL IM ONE; +methylPREDNISolone SOD SUCC 125 MG/2 ML VL ONE
--- NOTE | 2018-09-11 15:49 | NUR ---
CHF PT ARRIVED AT THE CHF CLINIC FROM BACK OFFICE FOR SOLUMEDROL AND LASIX. VS OBTAINED PT IS A/O X 3 , 0 DISTRESS
[2018-09-11 16:13] VITALS: BP 107/78
--- NOTE | 2018-09-11 16:13 | NUR ---
Discharge Instructions See e-MAR for any mediations given with this visit. Patient education given on disease process. Patient verbalized understanding. Previous labs reviewed. Patient discharged in stable condition with after care instructions and follow up appointment. MEDICATIONS SOLUMEDROL 125 MG PO X 1 LASIX 40 MG IVP X 1 Addendum: 09/11/18 at 1657 by CHANTALE VALLECILLO RN RN VA SOULEMEDROL 125 MG IVP X 1
[2018-09-12 08:41] LABS: Urine Blood Negative /uL (Negative); Urine Specific Gravity 1.025 (1.001-1.035)
[2018-09-12 08:53] LABS: Albumin 3.3 g/dL (3.4-5.0); BUN/Creatinine Ratio 20.6; Calcium 8.7 mg/dL (8.5-10.1); Potassium 4.5 mmol/L (3.5-5.1)
[2018-09-12 08:54] LABS: Eosinophils # (auto) 0.2 uL; Hematocrit 48.8 % (41.0-53.0); Monocytes # (auto) 1.2 uL; Monocytes % (auto) 7.9 % (0.0-12.0); Red Blood Cells 4.74 10^6/uL (4.5-5.90)
[2018-09-12 08:55] LABS: Basophils # (auto) 0.1 uL; Basophils % (auto) 0.5 % (0.0-2.0); Bilirubin, Total 0.2 mg/dL (0.2-1.0); Eosinophils % (auto) 1.4 % (0.0-7.0); Hemoglobin 15.1 g/dL (13.5-17.5); Lymphocytes # (auto) 2.2 uL; Lymphocytes % (auto) 14.7 % (10.0-50.0); Mean Corpuscular Hemoglobin 31.9 pg (28.0-32.0); Neutrophils # (auto) 11.6 uL; Neutrophils % (auto) 75.5 % (37.0-80.0); Nucleated Red Blood Cells % 0.2 %; Platelet Count (auto) 134 10^3/uL (140-450); Red Cell Distribution Width 18.4 % (11.8-14.3); Total Protein 6.4 g/dL (6.4-8.2); White Blood Cell 15.3 10^3/uL (4.4-10.8)
== END | disposition home or self-care (01) ==
LOC: Rad HDHVI 15:47
PROVIDERS: ATTEND Internal Medicine
DX: I11.0 Hypertensive heart disease with heart failure (principal); I50.30 Unspecified diastolic (congestive) heart failure; D64.9 Anemia, unspecified; N39.0 Urinary tract infection, site not specified; J43.9 Emphysema, unspecified; J45.902 Unspecified asthma with status asthmaticus; F41.9 Anxiety disorder, unspecified; Z99.81 Dependence on supplemental oxygen; Z87.891 Personal history of nicotine dependence
CPT/HCPCS: 36415; 80053; 81003; 83880; 85025; 96374; 96375; G0463; J1940; J2930

== ENCOUNTER → 2018-09-12 | Outpatient (CLI) | payer MEDICARE ==
[~2018-09-12] MED LIST changes: -FUROSEMIDE 40 MG/4 ML VIAL IV ONE; -FUROSEMIDE 40 MG/4 ML VIAL ONE; -methylPREDNISolone SOD SUCC 125 MG/2 ML VL IM ONE; -methylPREDNISolone SOD SUCC 125 MG/2 ML VL ONE
== END | disposition home or self-care (01) ==
LOC: Rad HDHVI 15:49
PROVIDERS: ATTEND Internal Medicine
DX: I08.1 Rheumatic disorders of both mitral and tricuspid valves (principal); J44.9 Chronic obstructive pulmonary disease, unspecified; I25.10 Atherosclerotic heart disease of native coronary artery without angina pectoris
CPT/HCPCS: 93306

== ENCOUNTER 2018-10-09 06:27 | Inpatient (IN) | payer MEDICARE | END 2018-11-03 20:05 | LOC: DOU IN ICU 10-20 00:12 → TELE-WESTW 10-22 17:21 → ICU WEST 10-15 17:05 → ER 06:27 → TELE 06:28 → ICU WEST 13:00 | PROC: 5A1955Z Respiratory Ventilation, Greater than 96 Consecutive Hours (ICD-10-PCS; principal; 2018-10-14 12:00) | PROC: 0BH17EZ Insertion of Endotracheal Airway into Trachea, Via Natural or Artificial Opening (ICD-10-PCS; 2018-10-14 12:00) | DX: A41.50 Gram-negative sepsis, unspecified (principal); I50.43 Acute on chronic combined systolic (congestive) and diastolic (congestive) heart failure; J18.9 Pneumonia, unspecified organism; J96.21 Acute and chronic respiratory failure with hypoxia; I26.99 Other pulmonary embolism without acute cor pulmonale; I13.0 Hypertensive heart and chronic kidney disease with heart failure and stage 1 through stage 4 chronic kidney disease, or unspecified chronic kidney disease; I42.9 Cardiomyopathy, unspecified; I47.1 Supraventricular tachycardia; J44.0 Chronic obstructive pulmonary disease with (acute) lower respiratory infection; J44.1 Chronic obstructive pulmonary disease with (acute) exacerbation; I43 Cardiomyopathy in diseases classified elsewhere; J98.11 Atelectasis; I82.409 Acute embolism and thrombosis of unspecified deep veins of unspecified lower extremity; J90 Pleural effusion, not elsewhere classified; G72.81 Critical illness myopathy; R65.20 Severe sepsis without septic shock; I25.10 Atherosclerotic heart disease of native coronary artery without angina pectoris; I48.91 Unspecified atrial fibrillation; N18.3 Chronic kidney disease, stage 3 (moderate); T17.990A Other foreign object in respiratory tract, part unspecified in causing asphyxiation, initial encounter ==

== ENCOUNTER → 2018-12-05 | Outpatient (CLI) | payer MEDICARE ==
[~2018-12-05] MED LIST changes: +ASPI-404 PO; +FEXO-42 PO; +FLUT1AER3; +FURO40TA4 PO; +GLUC1TAB22 PO; +POTA1TAB4; -PRE5T PO
[2018-12-05 16:13] LABS: Calcium 8.7 mg/dL (8.5-10.1); Potassium 4.1 mmol/L (3.5-5.1)
[2018-12-05 16:16] LABS: BUN/Creatinine Ratio 23.4
== END | disposition home or self-care (01) ==
LOC: LAB 11:23
PROVIDERS: ATTEND Internal Medicine Cardiovascular Disease
DX: I11.0 Hypertensive heart disease with heart failure (principal); I50.9 Heart failure, unspecified
CPT/HCPCS: 36415; 80048

== ENCOUNTER 2018-12-14 05:10 | Inpatient (IN) | payer MEDICARE ==
[~2018-12-14] VITALS: Ht 182.9 cm; Wt 73.9 kg
[2018-12-14] MEDS ORDERED: methylPREDNISolone SOD SUCC 125 MG/2 ML VL ONE (05:17)
[2018-12-14] MEDS ORDERED: IPRATROPIUM BROM 0.5 MG/2.5ML INH SOL NEB ONE (05:30)
[2018-12-14] MEDS ORDERED: ALBUTEROL SULF 2.5 MG/0.5ML(0.5%) NEB SOLN NEB ONE (05:30)
[2018-12-14] MEDS ORDERED: methylPREDNISolone SOD SUCC 125 MG/2 ML VL IV ONE (05:30)
[2018-12-14] MEDS ORDERED: LEVOFLOXACIN 500MG 100 ML IV ONE (07:00)
[2018-12-14 07:34] LABS: Mean Corpuscular Hemoglobin 33.3 pg (28.0-32.0)
[2018-12-14 07:36] LABS: Mean Corpuscular Hgb Conc. 32.4 g/dL (32.0-36.0); Mean Corpuscular Volume 102.8 fL (80.0-100.0); Platelet Count (auto) 300 10^3/uL (140-450); Red Cell Distribution Width 18.1 % (11.8-14.3); White Blood Cell 17.6 10^3/uL (4.4-10.8)
[2018-12-14 07:43] LABS: Basophils % (manual) 0 (0.0-2.0); Blast Cells 0; Eosinophils % (manual) 0 (0-7); Metamyelocytes % 0; Promyelocytes % 0; Reactive Lymphocytes 0
[2018-12-14 07:51] LABS: Albumin 2.9 g/dL (3.4-5.0); Anion Gap 9 (5-15); Blood Urea Nitrogen 16 mg/dL (7-18); Calcium 8.9 mg/dL (8.5-10.1); Carbon Dioxide 26 mmol/L (21-32); Chloride 105 mmol/L (98-107); Glucose 112 mg/dL (74-106); Potassium 3.8 mmol/L (3.5-5.1); Sodium 140 mmol/L (136-145)
[2018-12-14 07:53] LABS: Alanine Aminotransferase 23 U/L (16-61); BUN/Creatinine Ratio 17.2; GFR African American 104 mL/min; GFR Non-African American 86 mL/min
[2018-12-14 08:00] LABS: Alkaline Phosphatase 137 U/L (45-117); Aspartate Aminotransferase 24 U/L (15-37); Bilirubin, Total 0.3 mg/dL (0.2-1.0); Total Protein 6.6 g/dL (6.4-8.2)
[2018-12-14 08:58] LABS: Band Neutrophils % (manual) 3; Lymphocytes % (manual) 9 (10.0-50.0); Monocytes % (manual) 4 (0-12); Myelocytes % 2
[2018-12-14] MEDS: ALPRAZolam 0.5 MG TAB PO PRN (16:00)
[2018-12-14] MEDS ORDERED: FLUCONAZOLE 200MG/100ML 100 ML IV SCH (16:20)
[2018-12-14 16:27] VITALS: BP 118/79
[2018-12-14] MEDS: busPIRone HCL 10 MG TAB PO SCH ×2 (17:09→21:43)
--- NOTE | 2018-12-14 17:30 | NUR ---
Telemetry admit from ER Patient admitted to Telemetry unit after SBAR received. Patient oriented to primary RN, unit, room, bed, and unit policies regarding patient care and visiting hours. Patient now on continuous telemetry monitoring, tele box #57 and telemetry reading on arrival to unit is Sinus Tach in the 120's. Patient placed on bedside oxygen,4L, weighed by bed scale and encouraged to call if they need something. Bed in lowest, locked position with side rails up x2. Fall precautions in place and call light within reach. All questions and concerns addressed, patient verbalized understanding. Will continue to monitor Q1hr/PRN.
[2018-12-14] MEDS ORDERED: ALBUTEROL SULF 2.5 MG/0.5ML(0.5%) NEB SOLN NEB SCH (18:00)
--- NOTE | 2018-12-14 18:10 | NUR ---
FAMILY Notified patient's daughter, Andrew, of admission and room # per patient's request.
[2018-12-14] MEDS: FLUCONAZOLE 100MG/50ML 50 ML IV SCH (18:49)
--- NOTE | 2018-12-14 19:17 | NUR ---
CLOSING NOTE Endorsed care of patient to NOC Steph PRETTY.
--- NOTE | 2018-12-14 19:30 | NUR ---
Opening Shift Note Assumed care of patient, awake and alert. No S/S of distress/SOB or pain. Instructed on POC and to call for assist PRN, Pt verbalized understanding. Will continue to monitor for changes Q1hr and PRN.
[2018-12-14] MEDS: LEVALBUTEROL HCL 1.25 MG/3 ML NEB NEB SCH (19:42)
--- NOTE | 2018-12-14 20:40 | NUR ---
Received call from MT. Escoto with HR of 140. Assessed patient while in bed. Patient on high mcdonnell's position. Pt stated, he tried to bring the HOB lower to to rest his back, however he became short of breath and panicked to bring the HOB into high mcdonnell's position. At time of assessment, patient's HR at 129 with no complaints of chest pain. Patient refused to have EKG done. Per patient "I am fine" Will continue to monitor.
--- NOTE | 2018-12-14 21:00 | NUR ---
Paged Dr. Bishop with patient update. Awaiting call back.
--- NOTE | 2018-12-14 21:33 | NUR ---
Received call back from Dr. Bishop with new order for Lasix 40 mg IV x 1 with K 20 meq po now. All orders read back, noted and carried out. Will continue to monitor.
[2018-12-14] MEDS ORDERED: POTASSIUM CHL 20 Meq TABLET PO ONE (21:40)
[2018-12-14] MEDS: TEMAZEPAM 15 MG CAP PO SCH (21:43)
[2018-12-14] MEDS: methylPREDNISolone SOD SUCC 40 MG/ML VL IV SCH (21:43)
[2018-12-14] MEDS ORDERED: FUROSEMIDE 40 MG/4 ML VIAL IV ONE (21:45)
[2018-12-14 22:00] VITALS: BP 104/65
[2018-12-14] MEDS ORDERED: busPIRone HCL 10 MG TAB PO SCH (22:00)
[2018-12-15] MEDS: LEVALBUTEROL HCL 1.25 MG/3 ML NEB NEB SCH ×4 (00:28→19:17)
[2018-12-15 05:40] VITALS: BP 113/74
[2018-12-15] MEDS: busPIRone HCL 10 MG TAB PO SCH ×3 (05:43→21:44)
[2018-12-15] MEDS: methylPREDNISolone SOD SUCC 40 MG/ML VL IV SCH ×3 (05:43→21:44)
--- NOTE | 2018-12-15 07:20 | NUR ---
Opening Shift Note Assumed care of patient, awake and alert. NO pain at this time, however patient short of breath at rest. Instructed on POC and to call for assist PRN, will continue to monitor for changes Q1hr and PRN. Bed locked in lowest position with two side rails up and call light in reach.
[2018-12-15 08:00] VITALS: BP 107/78
[2018-12-15 09:00] VITALS: BP 107/78
[2018-12-15] MEDS: MONTELUKAST SODIUM 10 MG TAB PO SCH (09:40)
[2018-12-15] MEDS: LEVOFLOXACIN 500MG 100 ML IV SCH (09:40)
[2018-12-15] MEDS: FLUCONAZOLE 100MG/50ML 50 ML IV SCH (09:40)
[2018-12-15] MEDS: POTASSIUM CHL 20 Meq TABLET PO SCH (09:41)
[2018-12-15] MEDS ORDERED: FUROSEMIDE 40 MG/4 ML VIAL IV SCH (10:00)
[2018-12-15 13:00] VITALS: BP 101/71
[2018-12-15] MEDS ORDERED: FUROSEMIDE 40 MG/4 ML VIAL IV ONE (14:15)
--- NOTE | 2018-12-15 15:00 | NUR ---
DR HERIBERTO MOLINA ORDERS RECEIVED FOR MEDICATION CHANGES FOLLOWED LASIX X 1 DOSE 40 MG IV NOW. CHANGE LASIX 40 MG IV DAILY TO DEMADEX 20 MG BID. ALSO MUCOMYST WITH MED NEB TREATMENTS 20% 2CC. WILL IMPLEMENT ORDERS.
[2018-12-15 17:00] VITALS: BP 102/68
[2018-12-15] MEDS ORDERED: FLUCONAZOLE 100MG/50ML 50 ML IV SCH (17:00)
[2018-12-15] MEDS: TORSEMIDE 20 MG TAB PO SCH (17:45)
--- NOTE | 2018-12-15 19:56 | NUR ---
Opening shift note Patient in bed alert and oriented x 4 watching TV, patient on a breathing treatment tolerating well with RT at bedside. Pt denies pain and any discomfort at this time. Plan of care discussed, patient verbalized understanding. All needs attended, will continue to monitor.
[2018-12-15] MEDS: TEMAZEPAM 15 MG CAP PO SCH (21:44)
[2018-12-15 22:11] VITALS: BP 165/80
[2018-12-16] MEDS: ACETYLCYSTEINE 20%(200MG/ML) SOL 4ML NEB SCH ×4 (00:34→19:09)
[2018-12-16] MEDS: LEVALBUTEROL HCL 1.25 MG/3 ML NEB NEB SCH ×4 (00:34→19:09)
--- NOTE | 2018-12-16 04:00 | NUR ---
PATIENT REQUESTED TO HAVE THE BED ALARM OFF. REFUSED TO HAVE IT ON. RISK AND BENEFITS EXPLAINED, HOWEVER, PATIENT STILL REFUSED. WILL CONTINUE TO MONITOR.
[2018-12-16 05:00] VITALS: BP 112/81
--- NOTE | 2018-12-16 05:23 | NUR ---
PATIENT COMPLAINED OF CHEST PAIN 10/06. BP 117/83, HR 133, RR 20, O2 @ 99 % ON 4LPM VIA NC. EKG DONE. PAGED DR. LOUIS AWAITING CALL BACK.
[2018-12-16] MEDS: busPIRone HCL 10 MG TAB PO SCH ×3 (05:47→21:20)
[2018-12-16] MEDS: methylPREDNISolone SOD SUCC 40 MG/ML VL IV SCH ×3 (05:47→21:20)
[2018-12-16] MEDS: TORSEMIDE 20 MG TAB PO SCH ×2 (06:06→18:04)
--- NOTE | 2018-12-16 06:18 | NUR ---
PT'S CHEST PAIN 05/06. PER PATIENT, FEELING BETTER. RE-PAGED DR. LOUIS, AWAITING CALL BACK.
--- NOTE | 2018-12-16 07:20 | NUR ---
Opening Shift Note Assumed care of patient, awake and alert. No S/S of distress/SOB or pain. Instructed on POC and to call for assist PRN, will continue to monitor for changes Q1hr and PRN. Bed locked in lowest position with two side rails up and call light in reach.
[2018-12-16 08:00] VITALS: BP 117/70
[2018-12-16] MEDS: POTASSIUM CHL 20 Meq TABLET PO SCH (08:59)
[2018-12-16] MEDS: LEVOFLOXACIN 500MG 100 ML IV SCH (08:59)
[2018-12-16] MEDS: MONTELUKAST SODIUM 10 MG TAB PO SCH (08:59)
[2018-12-16 09:00] VITALS: BP 117/70
[2018-12-16] MEDS ORDERED: FLUCONAZOLE 100MG/50ML 50 ML IV SCH (10:00)
[2018-12-16 13:00] VITALS: BP 116/66
[2018-12-16] MEDS ORDERED: DIGOXIN (250MCG/ML) 2 ML AMPULE IV ONE (13:45)
[2018-12-16] MEDS ORDERED: ATENOLOL 50 MG TAB PO ONE (13:45)
[2018-12-16] MEDS: ALPRAZolam 0.5 MG TAB PO PRN (15:36)
--- NOTE | 2018-12-16 16:00 | NUR ---
PATIENT UNDER DISTRESS PATIENT COMPLAINS OF DIFFICULTY BREATHING, AND ANXIETY. UPON ENTERING THE ROOM PATIENT BREATHING HAS BECOME MORE LABORED BREATHING MOSTLY THROUGH MOUTH. OXYGEN SATURATION IS RANGING FROM LOWEST BEING 55,77,78,88,92,89 UNABLE TO MAINTAIN ABOVE 80% CONSISTENTLY ON 4 L NC. PATIENT HAS EXTREMITIES COOL TO THE TOUCH AND MOTTLED WITH SOME DIAPHORESIS NOTED. BP READS 96/54 HR 107 CHECKED BLOOD SUGAR AND IT WAS 313. PATIENT ON SOLUMEDROL. PAGED RT TO PLACE PATIENT ON ANOTHER SOURCE OF O2. ABG DRAWN AND REPORTED TO DR LOUIS. PH 7.410 P CO2 24.4 HCO3 15.[address] LOUIS WANTS TO STABILIZE CALM PATIENT AND DECREASE O2 CALLED CHARGE NURSE GENEVA TO AIDE IN PATIENT CARE. RT GLENIS PLACED PATIENT ON BIPAP PATIENT SATURATION 97-100 %. DR LOUIS CALLED FOR ORDERS. ORDERS FOR ANXIETY ATIVAN 1 MG NOW AND Q 6 PRN ORDERED PER CHARGE NURSE GENEVA. ALL ORDERS IMPLEMENTED. WILL CONTINUE TO MONITOR.
[2018-12-16] MEDS ORDERED: LORazepam 2MG/ML-1ML VIAL ONE (16:20)
[2018-12-16] MEDS: LORazepam 2MG/ML-1ML VIAL IV PRN ×2 (16:34→23:50)
[2018-12-16 17:00] VITALS: BP 96/64
--- NOTE | 2018-12-16 18:22 | NUR ---
PATIENT TAKEN OFF BIPAP PER CHARGE NURSE GENEVA PATIENT CURRENTLY ON 4 L NC O2 SAT 97% PATIENT STILL SHOWING SIGNS OF SOB USING ACCESSORY MUSCLES BUT DOES NOT WANT THE BIPAP ON. WILL CONTINUE TO MONITOR.
--- NOTE | 2018-12-16 19:30 | NUR ---
Opening Shift Note Assumed care of patient, awake, alert and anxious at this time, daughter at bedside. Tachypneic at this time, shallow breathing sating at 95% on 4 Lpm/NC. Instructed on POC and to call for assist as needed, patient verbalized understanding. Bed in lowest position, bed alarm on, will continue to monitor
[2018-12-16] MEDS: TEMAZEPAM 15 MG CAP PO SCH (21:20)
[2018-12-16 22:00] VITALS: BP 95/59
--- NOTE | 2018-12-16 22:00 | NUR ---
Patient requested RT at this time, paged RT
--- NOTE | 2018-12-16 23:00 | NUR ---
2300 - Patient on continued SOB, sating at 88-90% on 4Lpm/NC, paged RT. HUSSEIN Monsalve aware of situation. 2310 - House Sup Kasia and ICU HUSSEIN Jacques at bedside
--- NOTE | 2018-12-16 23:10 | NUR ---
Code Assist note. Patient determined to be at high risk for Code Blue due to cardiac/respiratory status and restlessness. Code assist in place. Primary RN, Enoch Pedroza, ICU HUSSEIN Jacques, HUSSEIN Monsalve, RN's German Spann and Razia at bedside. Will notify .
--- NOTE | 2018-12-16 23:15 | NUR ---
Patient has cold/clammy skin. V/S taken BP 118/78, HR 102, O2 93% on 4 Lpm/NC, RR 31, Blood Sugar 106
--- NOTE | 2018-12-16 23:18 | NUR ---
IV leaking on right upper arm, removed with catheter intact. IV insertion IV access obtained, via clean sterile technique by inserting 22 gauge catheter at RW and LFA 22 g after (3) attempt(s). IV secured properly. No trauma to site. Patient tolerated well. NOTE: []
--- NOTE | 2018-12-16 23:25 | NUR ---
5 - ABG was taken. 8 - RT hooked patient to Bipap 2333 - CXR done Stat
[2018-12-17] VITALS (7 sets, daily range): BP systolic 71–95; BP diastolic 34–58
--- NOTE | 2018-12-17 00:05 | NUR ---
0005 - BP now on . Rechecked after 2 minutes and its 0014 - Paged Dr. Bishop, awaiting call back
--- NOTE | 2018-12-17 00:27 | NUR ---
Dr. Bishop called and updated him on patient's status. Received order to give Solumedrol x1 and sharma insertion at this time. Acknowledged and read back, will continue to monitor
[2018-12-17] MEDS ORDERED: methylPREDNISolone SOD SUCC 40 MG/ML VL IV ONE (00:30)
--- NOTE | 2018-12-17 00:30 | NUR ---
Reconsulted to Dr. Bishop about patient's low BP, no new order at this time, will closely monitor patient
[2018-12-17] MEDS: ACETYLCYSTEINE 20%(200MG/ML) SOL 4ML NEB SCH ×2 (00:35→06:56)
[2018-12-17] MEDS: LEVALBUTEROL HCL 1.25 MG/3 ML NEB NEB SCH ×2 (00:35→06:56)
--- NOTE | 2018-12-17 01:00 | NUR ---
Sharma catheter insertion Patient assessed and determined to be in need of sharma catheter. Order obtained from Dr. Bishop. Patient educated on catheter and reason for insertion. Sharma catheter 16 Gibraltarian inserted with clean sterile technique after 3 attempts. Patient tolerated well.
--- NOTE | 2018-12-17 01:10 | NUR ---
Rechecked BP and its 92/52, HR 96, patient on Bipap, will continue to monitor
--- NOTE | 2018-12-17 03:25 | NUR ---
Respiratory note: REMOVED PT FROM BIPAP AT THIS TIME AND PLACED ON 4LNC AT THIS TIME, PT STATES HE FEELS FINE ON CANNULA. O2 SAT 100%
--- NOTE | 2018-12-17 03:31 | NUR ---
Patient requested to take off Bipap, RT at bedside. Hooked back to O2 at 4 Lpm/NC, will continue to monitor
--- NOTE | 2018-12-17 04:50 | NUR ---
Patient is lethargic and Short of Breath on NC, BP is 59/30, paged RT. Paged Dr. Bishop.
--- NOTE | 2018-12-17 04:53 | NUR ---
Spoke to Dr. Bishop and updated on patient's status, order received to give 500ml of NS Bolus and to transfer patient to ICU. HUSSEIN Monsalve made aware
--- NOTE | 2018-12-17 05:22 | NUR ---
Gave report to WOOD [employer] FACTORY WORKERMARIA DE JESUS Paulino
[2018-12-17] MEDS ORDERED: DOPamine 1600MCG/ML D5W 250 ML IV SCH (05:30)
[2018-12-17] MEDS ORDERED: DOPamine 1600MCG/ML D5W 250 ML IV ONE (05:33)
--- NOTE | 2018-12-17 05:50 | NUR ---
Transfer patient to ICU with all personal belongings. Patient lethargic but oriented x4. Endorsed care to MARIA DE JESUS Paulino
--- NOTE | 2018-12-17 05:50 | NUR ---
Received Pt from Tele 290A to ICU 110 Resume care of Pt, awake and alert, able to verbalize needs. Breathing on O2 NRB 15LPM, POX 100%, RR 19, no labored. Lungs sound crackle throughout anterior. BP 70/30, will start Dopamine as MD order, and titrate to keep SBP more than 90. Christopher's catheter hung to gravity, no full bladder noted, scant urine in the tubing. 22G saline lock at right wrist. 22G IV at left hand, will start Dopamine shortly, see IV spreadsheet and V/S sheet for details. All extremities cool to touch. Bed in low position, call light within reach, fall and safety precaution in place, all alarms are audible. Instruct Pt on POC and condition, will continue to monitor and endorsed to day nurse.
--- NOTE | 2018-12-17 05:55 | NUR ---
Respiratory note: PT TAKEN OFF BIPAP FOR TRANSPORT TO ICU. PLACED ON NRB MASK SET TO 25L. SPO2 100% HR 94 RR 24. TOLERATED TRANSPORT WELL. WILL CONTINUE TO MONITOR.
[2018-12-17] MEDS: busPIRone HCL 10 MG TAB PO SCH (06:00)
[2018-12-17] MEDS: TORSEMIDE 20 MG TAB PO SCH (06:00)
[2018-12-17] MEDS: methylPREDNISolone SOD SUCC 40 MG/ML VL IV SCH (06:23)
--- NOTE | 2018-12-17 06:38 | NUR ---
Called patient's daughter Andrew and updated on patient's status, daughter verbalized understanding
--- NOTE | 2018-12-17 08:11 | NUR ---
CODE BLUE Upon initial assessment patient. Patient was alert and oriented X3, following commands and speech appropriate and clear but seems out of breath while talking. Patient complained that he was short of breath, increased head of bed, informed patient that he is sating 94% and stepped out of the room to call RT Joscue to see if he is able to put him back on BIPAP or give a breathing treatment. After paging RT, walked into the room to find the patient in the heart rate 50's on the bedside monitor, attempted to call patients name while feeling for a pulse. NO response from patient and no pulse felt. CPR started.
--- NOTE | 2018-12-17 08:29 | NUR ---
FAMILY Patients daughter Andrew called with no answer to give update on patient change of condition.
[2018-12-17] MEDS ORDERED: SODIUM BICARBONATE 8.4 % INJ 50ML VIAL IV ONE (08:30)
[2018-12-17] MEDS ORDERED: EPINEPHrine HCL 250 ML IV ONE (08:30)
--- NOTE | 2018-12-17 08:30 | NUR ---
ROSC Obtained ROSC.
[2018-12-17] MEDS ORDERED: MIDAZOLAM DRIP 50 mg/50mL 50 ML IV SCH (08:33)
[2018-12-17] MEDS ORDERED: SODIUM CHLORIDE 0.9% 1,000 ML IV SCH (08:45)
[2018-12-17] MEDS ORDERED: VANCOMYCIN PER PHARMACY 0 MG IV SCH (08:45)
[2018-12-17] MEDS ORDERED: AMIODARONE HCL 150 MG in D5W 5% 100 ML IV ONE (08:45)
--- NOTE | 2018-12-17 08:45 | NUR ---
CODE BLUE Patient went into V-fib, no pulses felt and CPR started.
--- NOTE | 2018-12-17 08:50 | NUR ---
FAMILY Called patients daughter Andrew to updated on change of condition on patient, Andrew stated " I will be there as soon as I can. I live a few blocks away. Do everything for him." Awaiting for patients daughter to arrive.
[2018-12-17] MEDS ORDERED: PIPERACILLIN-TAZOB 3.375GM 100 ML IV ONE (09:00)
--- NOTE | 2018-12-17 09:05 | NUR ---
CODE CALLED Code called at [address] Reyna. Daughter Andrew at bedside.
[2018-12-17] MEDS ORDERED: ATENOLOL 50 MG TAB PO SCH (10:00)
--- NOTE | 2018-12-17 10:00 | NUR ---
[facility] spoke to Nydia Jolly who states patient is a candidate for eye and tissue donation. .
--- NOTE | 2018-12-17 10:22 | NUR ---
[employer] Called and spoke to Janice and states " a deputy will be contacting you shortly."
--- NOTE | 2018-12-17 10:30 | NUR ---
MORTUARY INFORMATION Patients daughter Andrew Owen called and spoke to this RN and received information for cremation that the patient set up awhil ago [facility], [facility] with contract number [phone]
--- NOTE | 2018-12-17 10:35 | NUR ---
MD Dr. Bishop aware of patients .
[2018-12-17] MEDS ORDERED: VANCOMYCIN 1GM/250ML 250 ML IV SCH (12:00)
--- NOTE | 2018-12-17 13:38 | NUR ---
[facility] Received phone call from Richa from [facility] for an update to see if patient is still here in the unit or if he's been moved to a morgue. Update given. Richa states "Will call again one more time for an update."
[2018-12-17] MEDS ORDERED: EPINEPHrine HCL 1 MG/10 ML SYRG IV ONE (13:59)
[2018-12-17] MEDS ORDERED: SODIUM BICARBONATE 8.4% INJ 50ML SYRINGE IV ONE (13:59)
[2018-12-17] MEDS ORDERED: AMIODARONE HCL (50 MG/ ML) 3 ML VIAL IV ONE (13:59)
[2018-12-17] MEDS ORDERED: PIPERACILLIN-TAZOB 3.375GM 100 ML IV SCH (14:00)
[2018-12-17] MEDS ORDERED: AMIODARONE HCL 900 MG in DEXTROSE 500 ML IV SCH (14:43)
--- NOTE | 2018-12-17 15:15 | NUR ---
Assessment Pt on 12/17/2018 Addendum: 12/17/18 at 1516 by ABRAHAM WELCH SS Amended: Links added.
--- NOTE | 2018-12-17 16:02 | NUR ---
[facility] if [facility] is still here in the unit or if he's been moved to a morgue. Update given. Jerry states "Will call again in an hour or two for an update."
--- NOTE | 2018-12-17 16:45 | NUR ---
[employer] Received phone call from coroners office and spoke to Vince Berman paint crew supervisor and he releases the body and states " No need for a case number."
--- NOTE | 2018-12-17 17:00 | NUR ---
[facility] here in the unit and informed patient has been released by hotel maintenance engineer at 1645.
--- NOTE | 2018-12-17 17:05 | NUR ---
[employer] Called [employer] and spoke to Vince, Vince states " it will be about 2-3 hours before someone can come to car pick up driver the patient." Charge nurse Stephanie eller.
--- NOTE | 2018-12-17 18:15 | NUR ---
POST MORTEM CARE Post mortem care given. All lines removed.
--- NOTE | 2018-12-17 18:40 | NUR ---
[facility] Patient taken to the [facility] in the basement accompanied by security and this RN.
== END 2018-12-17 18:48 | disposition expired | DRG 208 ==
LOC: EDBD 05:10 → ER 05:10 → TELE 05:11 → TELE-WESTW 17:46 → ICU WEST 12-17 05:47
PROVIDERS: ADMIT Internal Medicine Cardiovascular Disease; ATTEND Internal Medicine Cardiovascular Disease
PROC: 5A09357 Assistance with Respiratory Ventilation, Less than 24 Consecutive Hours, Continuous Positive Airway Pressure (ICD-10-PCS; principal; 2018-12-14)
PROC: 5A09357 Assistance with Respiratory Ventilation, Less than 24 Consecutive Hours, Continuous Positive Airway Pressure (ICD-10-PCS; 2018-12-16)
PROC: 5A1935Z Respiratory Ventilation, Less than 24 Consecutive Hours (ICD-10-PCS; 2018-12-17)
PROC: 06HM33Z Insertion of Infusion Device into Right Femoral Vein, Percutaneous Approach (ICD-10-PCS; 2018-12-17)
DX: J96.20 Acute and chronic respiratory failure, unspecified whether with hypoxia or hypercapnia (principal); I50.23 Acute on chronic systolic (congestive) heart failure; J18.1 Lobar pneumonia, unspecified organism; J44.1 Chronic obstructive pulmonary disease with (acute) exacerbation; I42.9 Cardiomyopathy, unspecified; I47.2 Ventricular tachycardia; J44.0 Chronic obstructive pulmonary disease with (acute) lower respiratory infection; I48.91 Unspecified atrial fibrillation; F41.9 Anxiety disorder, unspecified; I11.0 Hypertensive heart disease with heart failure; I25.10 Atherosclerotic heart disease of native coronary artery without angina pectoris; I65.21 Occlusion and stenosis of right carotid artery; I49.01 Ventricular fibrillation; Z95.810 Presence of automatic (implantable) cardiac defibrillator; Z99.81 Dependence on supplemental oxygen; Z90.49 Acquired absence of other specified parts of digestive tract; Z79.899 Other long term (current) drug therapy
CPT/HCPCS: 36415; 36600; 71045; 80053; 82805; 82962; 83880; 84484; 85007; 85027; 87040; 87081; 92950; 93005; 94640; 94644; 94660; 96365; 96367; 96375; G0378; J0171; J1450; J1956; J2250; J7060